=== PATIENT | male | born 1960 | race Caucasian/White ===

== ENCOUNTER 2020-09-19 12:05 | Day surgery (SDC) | payer MEDICAID ==
[2020-09-14 11:59] LABS: BASOPHILS % (AUTO) 0.6 % (0-1); EOSINOPHILS # (AUTO) 0.1 X10'3 (0-0.9); EOSINOPHILS % (AUTO) 1.6 % (0-6); HEMATOCRIT 46.5 % (42.0-52.0); HEMOGLOBIN 15.8 g/dl (14.0-17.9); LYMPHOCYTES % (AUTO) 18.1 % (21-51); MEAN CORPUSCULAR HEMOGLOBIN 29.6 PG (27.0-31.0); MEAN CORPUSCULAR HGB CONC 33.9 g/dL (33.0-36.5); MEAN CORPUSCULAR VOLUME 87.3 FL (78-98); MEAN PLATELET VOLUME 8.2 FL (7.4-10.4); MONOCYTES # (AUTO) 0.4 X10'3 (0-0.9); MONOCYTES % (AUTO) 7.9 % (2-12); NEUTROPHILS # (AUTO) 3.9 X10'3 (1.8-7.7); NEUTROPHILS % (AUTO) 71.8 % (42-75); PLATELET COUNT 160 X10'3 (140-440); RED BLOOD COUNT 5.32 X10'6 (4.70-6.10); RED CELL DISTRIBUTION WIDTH 13.7 % (11.5-14.5); WHITE BLOOD COUNT 5.5 X10'3 (4.5-11.0)
[2020-09-14 12:07] LABS: ALBUMIN 4.1 G/DL (3.4-5.0); ANION GAP 8 (8-16); BLOOD UREA NITROGEN 19 MG/DL (7-18); BUN/CREATININE RATIO 19.8 (5.4-32.0); CALCIUM 9.4 MG/DL (8.5-10.1); CHLORIDE 104 MMOL/L (99-107); CREATININE 0.96 MG/DL (0.60-1.10); GLUCOSE 107 MG/DL (70-104); POTASSIUM 4.7 MMOL/L (3.5-5.1); SODIUM 140 MMOL/L (135-145); TOTAL CARBON DIOXIDE 27.8 MMOL/L (24-32); eGFR 80 ML/MIN
[2020-09-14 12:26] LABS: PARTIAL THROMBOPLASTIN TIME 27 SECONDS (22-32)
[2020-09-19] VITALS (8 sets, daily range): BP systolic 111–150; BP diastolic 67–94
[~2020-09-19] VITALS: Ht 167.6 cm; Wt 88.0 kg
[2020-09-19] MEDS ORDERED: normal saline 1,000 ML IV SCH (12:30)
[2020-09-19] MEDS ORDERED: diphenhydrAMINE 25mg capsule PO PRN (12:30)
[2020-09-19] MEDS ORDERED: LIDOcaine/PRILOcaine 5gm cream TP ONE (12:30)
[2020-09-19] MEDS ORDERED: LORazepam 0.5 MG tablet PO PRN (12:30)
[2020-09-19] MEDS ORDERED: TIMO5DRO4 (12:55)
[2020-09-19] MEDS ORDERED: ALBU8.5H8 (12:55)
[2020-09-19] MEDS ORDERED: BUDE10.22 INH (12:55)
[2020-09-19] MEDS ORDERED: GABA100C PO (12:55)
[2020-09-19] MEDS ORDERED: LATA2.5D14 (12:55)
[2020-09-19] MEDS ORDERED: PANT40TA54 PO (12:55)
[2020-09-19] MEDS ORDERED: ASPI-107 PO (12:55)
[2020-09-19] MEDS ORDERED: BUDE10.26 PO (12:55)
[2020-09-19] MEDS ORDERED: TIOT4MIS2 INH (12:55)
[2020-09-19] MEDS ORDERED: APRE30TA2 PO (12:55)
[2020-09-19] MEDS ORDERED: fentaNYL/PF 50MCG/1 ML 2ML syringe ONE (13:22)
[2020-09-19] MEDS ORDERED: LIDOcaine 1% (10mg/ml)w/preservative injection 20ml MDV ONE (13:22)
[2020-09-19] MEDS ORDERED: midazolam 1 mg/ML 2ml injection ONE (13:22)
[2020-09-19] MEDS ORDERED: heparin 1,000 UNITS/NS 500ml 500 ML ONE (13:22)
[2020-09-19] MEDS ORDERED: iohexol 350MG/ML 100ml bottle IV ONE (13:22)
[2020-09-19] MEDS ORDERED: HYDROcodone/acetaminophen 5mg/325mg tablet PO PRN (15:20)
[2020-09-19] MEDS ORDERED: ondansetron/PF 4mg/2ml inj IV PRN (15:20)
[2020-09-19] MEDS ORDERED: proCHLORperazine 10 MG/2 ml inj IV PRN (15:20)
[2020-09-19] MEDS ORDERED: HYDROcodone/acetaminophen 10/325mg tab PO PRN (15:20)
== END 2020-09-19 18:00 | disposition home or self-care (01) ==
LOC: SSTAY O 12:05
PROVIDERS: ATTEND Internal Medicine Interventional Cardiology
DX: I35.0 Nonrheumatic aortic (valve) stenosis (principal); I25.10 Atherosclerotic heart disease of native coronary artery without angina pectoris; J44.9 Chronic obstructive pulmonary disease, unspecified; K74.60 Unspecified cirrhosis of liver; E78.5 Hyperlipidemia, unspecified; Z79.01 Long term (current) use of anticoagulants; Z86.19 Personal history of other infectious and parasitic diseases; Z79.82 Long term (current) use of aspirin; Z79.899 Other long term (current) drug therapy
CPT/HCPCS: 36415; 80048; 85025; 85610; 85730; 93005; 93460; 99152; C1769; J1644; J2001; J2250; J3010; J7030; Q0163; Q9967; 99153; A4620; A6258; C1751

== ENCOUNTER 2020-10-29 06:59 | Emergency (ER) | payer MEDICAID ==
[~2020-10-29] VITALS: Ht 167.6 cm; Wt 86.4 kg
[~2020-10-29 06:59] MED LIST: ALBU8.5H8 INH; APRE30TA2 PO; ASPI-107 PO; BUDE10.22 INH; BUDE10.26 PO; GABA100C PO; LATA2.5D14 EACHEYE; PANT40TA54 PO; TIMO5DRO4 EACHEYE; TIOT4MIS2 INH
[2020-10-29 07:03] VITALS: BP 147/87
[2020-10-29] MEDS ORDERED: HYDR-3965 PO (07:44)
[2020-10-29] MEDS ORDERED: HYDROcodone/acetaminophen 5mg/325mg tablet PO ONE (07:45)
[2020-11-02] MEDS ORDERED: BACL20TA PO (11:09)
== END 2020-10-29 09:29 | disposition home or self-care (01) ==
LOC: ER 07:01
DX: S82.831A Other fracture of upper and lower end of right fibula, initial encounter for closed fracture (principal); J44.9 Chronic obstructive pulmonary disease, unspecified; Z87.891 Personal history of nicotine dependence; Z72.89 Other problems related to lifestyle; Z79.82 Long term (current) use of aspirin; Z79.899 Other long term (current) drug therapy; W19.XXXA Unspecified fall, initial encounter; Z91.81 History of falling; Y93.89 Activity, other specified; Y92.002 Bathroom of unspecified non-institutional (private) residence as the place of occurrence of the external cause; Y99.8 Other external cause status
CPT/HCPCS: 73610; 99284

== ENCOUNTER 2020-11-06 09:21 | Day surgery (SDC) | payer MEDICAID ==
[2020-11-02 12:31] LABS: BASOPHILS % (AUTO) 0.6 % (0-1); EOSINOPHILS # (AUTO) 0.2 X10'3 (0-0.9); EOSINOPHILS % (AUTO) 3.8 % (0-6); LYMPHOCYTES # (AUTO) 0.9 X10'3 (1.1-4.8); LYMPHOCYTES % (AUTO) 18.3 % (21-51); MEAN CORPUSCULAR HEMOGLOBIN 29.5 PG (27.0-31.0); MEAN CORPUSCULAR HGB CONC 33.6 g/dL (33.0-36.5); MEAN CORPUSCULAR VOLUME 87.9 FL (78-98); MONOCYTES # (AUTO) 0.5 X10'3 (0-0.9); MONOCYTES % (AUTO) 10.9 % (2-12); NEUTROPHILS # (AUTO) 3.3 X10'3 (1.8-7.7); NEUTROPHILS % (AUTO) 66.4 % (42-75); PRE OP HEMATOCRIT 39.8 % (42.0-52.0); PRE OP HEMOGLOBIN 13.4 g/dL (14.0-17.9); PRE OP PLATELET COUNT 148 X10'3 (140-440); RED BLOOD COUNT 4.53 X10'6 (4.70-6.10); RED CELL DISTRIBUTION WIDTH 13.4 % (11.5-14.5)
[2020-11-02 12:40] LABS: PRE OP INR 1.1 INR; PRE OP PROTIME 11.4 SECONDS (9.0-12.0)
[2020-11-02 12:41] LABS: ALBUMIN 3.6 G/DL (3.4-5.0); ALBUMIN/GLOBULIN RATIO 0.9 (1.1-1.5); ALKALINE PHOSPHATASE 43 IU/L (46-116); BLOOD UREA NITROGEN 19 MG/DL (7-18); BUN/CREATININE RATIO 21.8 (5.4-32.0); CALCIUM 9.5 MG/DL (8.5-10.1); CHLORIDE 103 MMOL/L (99-107); CREATININE 0.87 MG/DL (0.60-1.10); PRE OP ALT 28 U/L (30-65); PRE OP ANION GAP 7 (8-16); PRE OP AST 22 U/L (10-37); PRE OP BILIRUB, TOTAL 0.5 MG/DL (0.0-1.0); PRE OP GLUCOSE 105 MG/DL (70-104); PRE OP POTASSIUM 4.5 MMOL/L (3.4-5.1); PRE OP SODIUM 138 MMOL/L (135-145); TOTAL CARBON DIOXIDE 28.5 MMOL/L (24-32); TOTAL PROTEIN 7.7 G/DL (6.4-8.2); eGFR 90 ML/MIN
[2020-11-06] VITALS (9 sets, daily range): BP systolic 132–155; BP diastolic 60–74
[~2020-11-06] VITALS: Ht 167.6 cm; Wt 86.2 kg
[~2020-11-06 09:21] MED LIST changes: +BACL20TA PO; -BUDE10.26 PO; +albuterol 2.5 MG/3 ML nebule NEB ONE; +cefazolin/dext.iso 2gm/100ml 100 ML IV ONE; +famotidine 20mg tablet PO ONE; +ringers solution, lacted 1,000 ML IV SCH; +vancomycin 1,500 MG in NS 300ml IV soln IV ONE
[2020-11-06] MEDS ORDERED: fentaNYL /PF 50mcg/ml 5ml ampule ONE (12:06)
[2020-11-06] MEDS ORDERED: MIDAZolam 1 MG/ML 5ML VIAL ONE (12:06)
[2020-11-06] MEDS ORDERED: etomidate 2mg/ml inj. ONE (12:06)
[2020-11-06] MEDS ORDERED: ROPIVAcaine 0.5% (5mg/ml) 30ml vial ONE (12:07)
[2020-11-06] MEDS ORDERED: BUPIVACAINE liposomal/PF 13.3 MG/ML vial IM ONE (12:12)
[2020-11-06] MEDS ORDERED: BUPIVAcaine/PF 2.5mg/ml (0.25%) 10ml vial ONE (12:12)
[2020-11-06] MEDS ORDERED: morphine 2 MG/ML inj. syringe IV PRN (12:15)
[2020-11-06] MEDS ORDERED: ROPIVAcaine 0.2%/PF PUMP/bolus 545 ML POPLITEAL SCH (12:15)
[2020-11-06] MEDS ORDERED: hydrALAZINE 20mg/ml inj. IV PRN (12:15)
[2020-11-06] MEDS ORDERED: ondansetron/PF 4mg/2ml inj IV PRN (12:15)
[2020-11-06] MEDS ORDERED: fentaNYL/PF 50MCG/1 ML 2ML syringe IV PRN ×2 (12:15)
[2020-11-06] MEDS ORDERED: morphine 4 MG/ML inj SYRINge IV PRN ×2 (12:15→12:30)
[2020-11-06] MEDS ORDERED: labetalol 20mg/4ml (5mg/ml) syringe IV PRN (12:15)
[2020-11-06] MEDS ORDERED: ROPIVAcaine 0.2% (10 MG/5 ML) BOLUS INJECTION POPLITEAL PRN (12:15)
[2020-11-06] MEDS ORDERED: ringers solution, lacted 1,000 ML IV SCH (12:15)
[2020-11-06] MEDS ORDERED: sevoflurane 250ml liquid IH ONE (12:31)
[2020-11-06] MEDS ORDERED: dexamethasone sod phosphate 4mg/ml inj. ONE (13:31)
[2020-11-06] MEDS ORDERED: ondansetron/PF 4mg/2ml inj ONE (13:32)
--- NOTE | 2020-11-06 13:55 | NUR ---
ADMITTED TO PACU FROM OR ACCOMPANIED BY ANESTHESIA. INTIAL PHYSICAL ASSESSMENT DONE AND RECORDED. REPORT RECEIVED FROM ANESTHESIA.
--- NOTE | 2020-11-06 15:00 | NUR ---
DISCHARGE CRITERIA MET, DISCHARGE INSTRUCTIONS GIVEN, DEMONSTRATES VERBAL UNDERSTANDING. DISCHARGED HOME IN GOOD CONDITION.
== END 2020-11-06 15:00 | disposition home or self-care (01) ==
LOC: PAS 09:21
PROVIDERS: ATTEND Orthopaedic Surgery
DX: S82.61XA Displaced fracture of lateral malleolus of right fibula, initial encounter for closed fracture (principal); S93.431A Sprain of tibiofibular ligament of right ankle, initial encounter; G89.18 Other acute postprocedural pain; J44.9 Chronic obstructive pulmonary disease, unspecified; K74.60 Unspecified cirrhosis of liver; H40.9 Unspecified glaucoma; Z86.19 Personal history of other infectious and parasitic diseases; Z86.16 Personal history of COVID-19; Z87.891 Personal history of nicotine dependence; Z79.82 Long term (current) use of aspirin; Z79.899 Other long term (current) drug therapy; Z20.822 Contact with and (suspected) exposure to COVID-19; W19.XXXA Unspecified fall, initial encounter; Y93.89 Activity, other specified; Y92.89 Other specified places as the place of occurrence of the external cause; Y99.8 Other external cause status
CPT/HCPCS: 27792; 36415; 64446; 64448; 71046; 73600; 76000; 76937; 80053; 85025; 85610; 85730; A6222; C1713; C9290; J1100; J2250; J2270; J2405; J2795; J3010; J3370; J3490; J7040; U0003; A4618; A6449; A7000; J7120

== ENCOUNTER 2021-09-02 13:06 | Emergency (ER) | payer MEDICAID ==
[~2021-09-02] VITALS: Ht 172.7 cm; Wt 94.4 kg
[~2021-09-02 13:06] MED LIST changes: +ALBU8.5H17 INH; -ALBU8.5H8 INH; -albuterol 2.5 MG/3 ML nebule NEB ONE; -cefazolin/dext.iso 2gm/100ml 100 ML IV ONE; -famotidine 20mg tablet PO ONE; -ringers solution, lacted 1,000 ML IV SCH; -vancomycin 1,500 MG in NS 300ml IV soln IV ONE
[2021-09-02 13:28] VITALS: BP 145/100
[2021-09-02 15:45] LABS: CLARITY,URINE CLEAR (Clear); COLOR,URINE YELLOW (Yellow); GLUCOSE, URINE NEGATIVE (Neg); KETONES,URINE NEGATIVE (Neg); LEUKOCYTE ESTERASE ,URINE NEGATIVE (Neg); NITRITES, URINE NEGATIVE (Neg); OCCULT BLOOD,URINE NEGATIVE (Neg); PH,URINE 5.5 (4.8-8.0); PROTEIN,URINE NEGATIVE (Neg); UROBILINOGEN,URINE 0.2 E.U/dL (0.2-1.0)
[2021-09-02 15:46] LABS: UA COLLECTION TYPE CLN CATCH MIDSTREAM
[2021-09-02 15:53] LABS: BASOPHILS % (AUTO) 0.7 % (0-1); EOSINOPHILS # (AUTO) 0.1 X10'3 (0-0.9); EOSINOPHILS % (AUTO) 1.8 % (0-6); HEMOGLOBIN 16.6 g/dl (14.0-17.9); LYMPHOCYTES # (AUTO) 1.3 X10'3 (1.1-4.8); LYMPHOCYTES % (AUTO) 20.3 % (21-51); MEAN CORPUSCULAR HEMOGLOBIN 29.5 PG (27.0-31.0); MEAN CORPUSCULAR HGB CONC 34.5 g/dL (33.0-36.5); MEAN CORPUSCULAR VOLUME 85.5 FL (78-98); MEAN PLATELET VOLUME 8.5 FL (7.4-10.4); MONOCYTES # (AUTO) 0.6 X10'3 (0-0.9); NEUTROPHILS # (AUTO) 4.2 X10'3 (1.8-7.7); NEUTROPHILS % (AUTO) 68.2 % (42-75); PLATELET COUNT 182 X10'3 (140-440); RED BLOOD COUNT 5.61 X10'6 (4.70-6.10); RED CELL DISTRIBUTION WIDTH 13.4 % (11.5-14.5); WHITE BLOOD COUNT 6.2 X10'3 (4.5-11.0)
[2021-09-02 16:00] LABS: ALANINE AMINOTRANSFERASE 48 U/L (12-78); ALBUMIN 4.1 G/DL (3.4-5.0); ALBUMIN/GLOBULIN RATIO 0.9 (1.1-1.5); ALKALINE PHOSPHATASE 55 IU/L (46-116); ANION GAP 5 (8-16); ASPARTATE AMINO TRANSFERASE 24 U/L (10-37); BILIRUBIN,TOTAL 0.5 MG/DL (0.1-1.0); BLOOD UREA NITROGEN 13 MG/DL (7-18); CALCIUM 9.4 MG/DL (8.5-10.1); CHLORIDE 106 MMOL/L (99-107); CREATININE 0.93 MG/DL (0.60-1.10); GLUCOSE 103 MG/DL (70-104); POTASSIUM 4.3 MMOL/L (3.5-5.1); SODIUM 139 MMOL/L (135-145); TOTAL CARBON DIOXIDE 27.6 MMOL/L (24-32); TOTAL PROTEIN 8.7 G/DL (6.4-8.2); eGFR 83 ML/MIN
== END 2021-09-02 16:50 | disposition home or self-care (01) ==
LOC: ER 13:07
DX: S30.0XXA Contusion of lower back and pelvis, initial encounter (principal); K76.9 Liver disease, unspecified; Z86.19 Personal history of other infectious and parasitic diseases; J44.9 Chronic obstructive pulmonary disease, unspecified; I35.0 Nonrheumatic aortic (valve) stenosis; G89.29 Other chronic pain; Z72.89 Other problems related to lifestyle; Z79.82 Long term (current) use of aspirin; Z79.899 Other long term (current) drug therapy; X58.XXXA Exposure to other specified factors, initial encounter; Y93.89 Activity, other specified; Y92.89 Other specified places as the place of occurrence of the external cause; Y99.8 Other external cause status
CPT/HCPCS: 36415; 80053; 81003; 83605; 84145; 85025; 85610; 99283

== ENCOUNTER 2021-10-27 14:20 | Emergency (ER) | payer MEDICAID ==
[~2021-10-27] VITALS: Ht 172.7 cm; Wt 93.8 kg
[2021-10-27 15:22] LABS: CLARITY,URINE CLEAR (Clear); COLOR,URINE YELLOW (Yellow); GLUCOSE, URINE NEGATIVE (Neg); KETONES,URINE NEGATIVE (Neg); LEUKOCYTE ESTERASE ,URINE NEGATIVE (Neg); NITRITES, URINE NEGATIVE (Neg); OCCULT BLOOD,URINE NEGATIVE (Neg); PH,URINE 5.5 (4.8-8.0); PROTEIN,URINE NEGATIVE (Neg); UROBILINOGEN,URINE 0.2 E.U/dL (0.2-1.0)
[2021-10-27 15:24] LABS: UA COLLECTION TYPE NON-SPECIFIED
[2021-10-27 15:32] VITALS: BP 118/89
== END 2021-10-27 16:24 | disposition home or self-care (01) ==
LOC: ER 14:21
DX: K46.9 Unspecified abdominal hernia without obstruction or gangrene (principal); J44.9 Chronic obstructive pulmonary disease, unspecified; G89.29 Other chronic pain; Z86.16 Personal history of COVID-19; Z72.89 Other problems related to lifestyle; Z79.82 Long term (current) use of aspirin; Z79.899 Other long term (current) drug therapy
CPT/HCPCS: 81003; 99283

== ENCOUNTER 2022-04-05 10:26 | Outpatient (CLI) | payer MEDICAID ==
[~2022-04-05] VITALS: Ht 173.2 cm; Wt 90.7 kg
[2022-04-05 11:00] LABS: BASOPHILS % (AUTO) 0.6 % (0-1); EOSINOPHILS # (AUTO) 0.1 X10'3 (0-0.9); EOSINOPHILS % (AUTO) 2.9 % (0-6); HEMATOCRIT 42.4 % (42.0-52.0); HEMOGLOBIN 14.5 g/dl (14.0-17.9); LYMPHOCYTES # (AUTO) 0.9 X10'3 (1.1-4.8); LYMPHOCYTES % (AUTO) 19.3 % (21-51); MEAN CORPUSCULAR HEMOGLOBIN 29.4 PG (27.0-31.0); MEAN CORPUSCULAR HGB CONC 34.1 g/dL (33.0-36.5); MEAN CORPUSCULAR VOLUME 86.2 FL (78-98); MEAN PLATELET VOLUME 8.5 FL (7.4-10.4); MONOCYTES # (AUTO) 0.5 X10'3 (0-0.9); MONOCYTES % (AUTO) 10.8 % (2-12); NEUTROPHILS # (AUTO) 3.1 X10'3 (1.8-7.7); NEUTROPHILS % (AUTO) 66.4 % (42-75); PLATELET COUNT 138 X10'3 (140-440); RED BLOOD COUNT 4.92 X10'6 (4.70-6.10); RED CELL DISTRIBUTION WIDTH 13.3 % (11.5-14.5); WHITE BLOOD COUNT 4.7 X10'3 (4.5-11.0)
[2022-04-05 11:11] LABS: APTT 29 SECONDS (22-32)
[2022-04-05 11:13] LABS: ALANINE AMINOTRANSFERASE 29 U/L (12-78); ALBUMIN 3.9 G/DL (3.4-5.0); ALBUMIN/GLOBULIN RATIO 1.1 (1.1-1.5); ALKALINE PHOSPHATASE 48 IU/L (46-116); ASPARTATE AMINO TRANSFERASE 13 U/L (10-37); BILIRUBIN,TOTAL 0.3 MG/DL (0.1-1.0); CALCIUM 8.7 MG/DL (8.5-10.1); TOTAL CARBON DIOXIDE 26.3 MMOL/L (24-32); TOTAL PROTEIN 7.5 G/DL (6.4-8.2)
[2022-04-05 11:18] LABS: ANION GAP 9 (8-16); BLOOD UREA NITROGEN 13 MG/DL (7-18); BUN/CREATININE RATIO 15.5 (5.4-32.0); CHLORIDE 105 MMOL/L (99-107); CREATININE 0.84 MG/DL (0.60-1.10); GLUCOSE 92 MG/DL (70-104); POTASSIUM 4.1 MMOL/L (3.5-5.1); SODIUM 140 MMOL/L (135-145); eGFR > 90 ML/MIN
[2022-04-05] MEDS ORDERED: IODIXANOL 320 MG/ML INFUS..BTL 100ML IV ONE ×2 (12:28→12:29)
[2022-04-05 14:09] LABS: ABG BASE EXCESS -0.2 mmol/L (-2.0-2.0); ABG HCO3 24.1 mmol/L (22.0-26.0); ABG OXYGEN SATURATION 97.2 % (94-97); ABG PCO2 (T) 38.5 mmHg (35.0-48.0); ALLEN'S TEST POSITIVE; FCOHb 0.7 % (0.0-3.9); FO2Hb 96.5 % (94-97); TOTAL HEMOGLOBIN 15.2 G/dl (14.0-18.0)
[2022-04-05] MEDS ORDERED: albuterol 2.5 MG/3 ML nebule NEB ONE (14:35)
== END 2022-04-05 23:59 | disposition home or self-care (01) ==
LOC: VAS 10:26 → RAD 23:59
PROVIDERS: ATTEND Internal Medicine Cardiovascular Disease
DX: Z01.818 Encounter for other preprocedural examination (principal); J43.9 Emphysema, unspecified; I70.0 Atherosclerosis of aorta; I70.8 Atherosclerosis of other arteries; R91.1 Solitary pulmonary nodule; J98.11 Atelectasis; K76.0 Fatty (change of) liver, not elsewhere classified; R16.0 Hepatomegaly, not elsewhere classified; R94.2 Abnormal results of pulmonary function studies; K42.9 Umbilical hernia without obstruction or gangrene; K40.20 Bilateral inguinal hernia, without obstruction or gangrene, not specified as recurrent; N40.0 Benign prostatic hyperplasia without lower urinary tract symptoms; K44.9 Diaphragmatic hernia without obstruction or gangrene; M41.85 Other forms of scoliosis, thoracolumbar region; M47.815 Spondylosis without myelopathy or radiculopathy, thoracolumbar region; I35.0 Nonrheumatic aortic (valve) stenosis; I65.29 Occlusion and stenosis of unspecified carotid artery; Z79.82 Long term (current) use of aspirin; Z79.899 Other long term (current) drug therapy; Z87.891 Personal history of nicotine dependence
CPT/HCPCS: 36415; 36600; 71046; 71275; 74174; 80053; 82803; 85018; 85025; 85610; 85730; 87811; 93880; 94060; 94727; 94729; 94760; Q9967

== ENCOUNTER 2022-05-30 06:37 | Inpatient (IN) | payer MEDICAID ==
[2022-05-24 14:51] LABS: CLARITY,URINE CLEAR (Clear); COLOR,URINE YELLOW (Yellow); GLUCOSE, URINE NEGATIVE (Neg); KETONES,URINE NEGATIVE (Neg); LEUKOCYTE ESTERASE ,URINE NEGATIVE (Neg); NITRITES, URINE NEGATIVE (Neg); OCCULT BLOOD,URINE NEGATIVE (Neg); PROTEIN,URINE NEGATIVE (Neg); UROBILINOGEN,URINE 0.2 E.U/dL (0.2-1.0)
[2022-05-24 14:57] LABS: UA COLLECTION TYPE CLN CATCH MIDSTREAM
[2022-05-24 14:58] LABS: BASOPHILS % (AUTO) 0.6 % (0-1); EOSINOPHILS # (AUTO) 0.2 X10'3 (0-0.9); EOSINOPHILS % (AUTO) 3.6 % (0-6); LYMPHOCYTES # (AUTO) 1.1 X10'3 (1.1-4.8); LYMPHOCYTES % (AUTO) 18.1 % (21-51); MEAN CORPUSCULAR HEMOGLOBIN 29.2 PG (27.0-31.0); MEAN CORPUSCULAR HGB CONC 34.6 g/dL (33.0-36.5); MEAN CORPUSCULAR VOLUME 84.3 FL (78-98); MEAN PLATELET VOLUME 7.8 FL (7.4-10.4); MONOCYTES # (AUTO) 0.6 X10'3 (0-0.9); MONOCYTES % (AUTO) 9.4 % (2-12); NEUTROPHILS # (AUTO) 4.2 X10'3 (1.8-7.7); NEUTROPHILS % (AUTO) 68.3 % (42-75); PRE OP HEMATOCRIT 44.4 % (42.0-52.0); PRE OP HEMOGLOBIN 15.4 g/dL (14.0-17.9); PRE OP PLATELET COUNT 177 X10'3 (140-440); RED BLOOD COUNT 5.27 X10'6 (4.70-6.10); RED CELL DISTRIBUTION WIDTH 13.2 % (11.5-14.5)
[2022-05-24 15:03] LABS: PRE OP INR 1.1 INR; PRE OP PROTIME 11.5 SECONDS (9.0-12.0)
[2022-05-24 15:04] LABS: ALBUMIN/GLOBULIN RATIO 0.9 (1.1-1.5); ALKALINE PHOSPHATASE 56 IU/L (46-116); BLOOD UREA NITROGEN 17 MG/DL (7-18); BUN/CREATININE RATIO 18.5 (5.4-32.0); CALCIUM 9.3 MG/DL (8.5-10.1); CHLORIDE 104 MMOL/L (99-107); CREATININE 0.92 MG/DL (0.60-1.10); PRE OP ALT 29 U/L (30-65); PRE OP ANION GAP 12 (8-16); PRE OP AST 23 U/L (10-37); PRE OP BILIRUB, TOTAL 0.5 MG/DL (0.0-1.0); PRE OP GLUCOSE 97 MG/DL (70-104); PRE OP POTASSIUM 4.5 MMOL/L (3.4-5.1); PRE OP SODIUM 140 MMOL/L (135-145); TOTAL CARBON DIOXIDE 24.3 MMOL/L (24-32); TOTAL PROTEIN 8.4 G/DL (6.4-8.2); eGFR 84 ML/MIN
[2022-05-30] VITALS (24 sets, daily range): BP systolic 112–142; BP diastolic 65–81
[~2022-05-30] VITALS: Ht 172.7 cm; Wt 88.8 kg
[~2022-05-30 06:37] MED LIST changes: +BUDE10.2 INH; -BUDE10.22 INH; +FLO0.4C; -GABA100C PO; +GABA300C PO; -TIMO5DRO4 EACHEYE; +aspirin 325mg tablet, delayed-release (Ecotrin) PO ONE; +ceFAZolin inj. 2,000 MG in dextrose 5%-water 100 ML IV ONE; +famotidine 20mg tablet PO ONE; +nitroPRUSSIDE (NIPRIDE) (200MCG/ML) 100ML Drip IV SCH; +ondansetron/PF 4mg/2ml inj IV PRN; +phenylephrine inj 50 MG in normal saline 250ml IV solN IV SCH; +protamine sulfate 10mg/ml inj. ONE; +ringers solution, lacted 1,000 ML IV SCH; +vancomycin 1,500 MG in NS 300ml IV soln IV ONE
--- NOTE | 2022-05-30 07:00 | NUR ---
PT PREPPED FOR SURGERY. IV STARTED WITHOUT DIFFICULTY. PT STATES HE FEELS VBERY SELFCONSCIOUS WITHOUT HIS DENTURES. ANESTHESIA AT BEDSIDE AND ADVISED PT THAT HE COULD PUT HIS DENTURES IN. PT IMMEDIATELY WALKED TO SINK WHERE HE INSERTED HIS DENTURES. PT WAS RECENTLY TREATED FOR HEP C. GFR IS 84 NIPRIDE AND VIKAS DRIPS PREPARED AND PLACED IN INFUSION PUMPS
[2022-05-30] MEDS ORDERED: REMIFENTANIL (Ultiva) 1 MG VIAL IV ONE (07:25)
[2022-05-30] MEDS ORDERED: iohexol 350MG/ML 100ml bottle IV ONE (09:13)
[2022-05-30] MEDS ORDERED: iohexol 350 MG/ML 50ML vial IV ONE (09:13)
[2022-05-30] MEDS ORDERED: heparin 1,000 UNITS/NS 500ml 1,500 ML ONE (09:14)
[2022-05-30] MEDS ORDERED: LIDOcaine 1% 30ml preserv. free vial ONE (09:16)
[2022-05-30] MEDS ORDERED: midazolam 1 mg/ML 2ml injection ONE (09:22)
[2022-05-30] MEDS ORDERED: propofol inj 20 ML IV ONE (09:54)
[2022-05-30] MEDS ORDERED: heparin 1,000unit/ml 10ml vial 10 ML ONE (09:54)
[2022-05-30] MEDS ORDERED: ALBUTEROL INHALER 1 PUFF/90 MCG INHALation IH PRN (10:00)
[2022-05-30] MEDS ORDERED: baclofen 10mg tablet PO PRN (10:00)
[2022-05-30] MEDS ORDERED: albuterol 2.5 MG/3 ML nebule NEB PRN (10:06)
[2022-05-30] MEDS ORDERED: proCHLORperazine 10 MG/2 ml inj IV PRN ×2 (10:15→10:30)
[2022-05-30] MEDS ORDERED: ondansetron/PF 4mg/2ml inj IV PRN ×2 (10:15→10:30)
[2022-05-30] MEDS ORDERED: ringers solution, lacted 1,000 ML IV SCH (10:15)
[2022-05-30] MEDS ORDERED: morphine 2 MG/ML inj. syringe IV PRN (10:15)
[2022-05-30] MEDS ORDERED: meperidine/PF 25mg/ml syringe IV PRN ×3 (10:15)
[2022-05-30] MEDS ORDERED: morphine 4 MG/ML inj SYRINge IV PRN (10:15)
[2022-05-30] MEDS ORDERED: labetalol 20mg/4ml (5mg/ml) syringe IV PRN (10:30)
[2022-05-30] MEDS ORDERED: potassium Cl 40MEQ/270ML bag 250 ML IV PRN (10:30)
[2022-05-30] MEDS ORDERED: magnesium 2GM in 50ml NS 50 ML IV PRN (10:30)
[2022-05-30] MEDS ORDERED: potassium Cl 20 mEq SR tablet PO PRN (10:30)
[2022-05-30] MEDS ORDERED: hydrALAZINE 20mg/ml inj. IV PRN (10:30)
[2022-05-30] MEDS ORDERED: potassium Cl 40MEQ/1/2NS 520ml 520 ML IV PRN (10:30)
[2022-05-30] MEDS ORDERED: docusate sod 100mg capsule PO PRN (10:30)
[2022-05-30] MEDS ORDERED: pantoprazole 40mg Tablet.DR PO PRN (10:30)
[2022-05-30] MEDS ORDERED: acetaminophen 325mg tablet PO PRN ×2 (10:30→17:25)
[2022-05-30] MEDS ORDERED: potassium Cl 20mEq/100mL bag 100 ML IV PRN (10:30)
[2022-05-30] MEDS ORDERED: ALPRAZolam 0.25mg tablet PO PRN (10:30)
[2022-05-30] MEDS ORDERED: potassium CL 10mEq/100ml bag 100 ML IV PRN (10:30)
[2022-05-30] MEDS ORDERED: magnesium 4gm in 100ml NS 100 ML IV PRN (10:30)
[2022-05-30] MEDS ORDERED: diphenhydrAMINE 25mg capsule PO PRN (10:30)
--- NOTE | 2022-05-30 10:35 | NUR ---
Received from OR via HOSPITAL BED , accompanied by Anesthesiologist and report given by Anesthesiolgist. PT ARRIVES AAOX4, ON SIMPLE MASK O2, NAD, BREATHS NORMAL, APPEARS CALM AND FOLLOWS COMMANDS. BILATERAL GROIN DRESSING DRY, CLEAN AND INTACT. PT VSS. Addendum: 05/30/22 at 1044 by Coy Colon RN Amended: Links added.
--- NOTE | 2022-05-30 11:24 | NUR ---
PT BILATERAL GROIN DRESSING CLEAN, DRY AND INTACT. NO SIGNS OF SWELLING OR HEMATOMA. Addendum: 05/30/22 at 1135 by Coy Colon RN Amended: Links added.
--- NOTE | 2022-05-30 11:36 | NUR ---
PT HAS URGE TO VOID WITHOUT ABILITY TO VOID. MULTIPLE ATTEMPTS TO VOID BUT UNABLE. MD NOTIFIED, ONE TIME IN&OUT CATH ORDER TO FOLLOW. BLADDER SCAN SHOWS APPROX 400 ML. Addendum: 05/30/22 at 1137 by Coy Colon RN Amended: Links added.
--- NOTE | 2022-05-30 11:45 | NUR ---
IN AND OUT STRAIGHT CATH PERFORMED PER MD ORDER WITHOUT INCIDENT. APPROX 400ML URINE RETURN, YELLOW IN COLOR. PT REPORTS FEELING MORE COMFORTABLE NOW. Addendum: 05/30/22 at 1203 by Coy Colon RN Amended: Links added.
--- NOTE | 2022-05-30 12:15 | NUR ---
Report called to receiving nurse SALAS BAILEY. Transferred via HOSPITAL BED. Belongings BAG LEFT WITH PT IN SHORT STAY ROOM . PT DELIVERED TO SHORT STAY WITHOUT INCIDENT, RN TO RN HANDOFF IN PTS ROOM. CONNECTED TO MONITOR, BED IN LOW POSITION. DRESSING TO BILATERAL GROIN ASSESSED, CLEAN, DRY AND INTACT. Special Issues communicated to receiving nurse. Addendum: 05/30/22 at 1231 by Coy Colon RN Amended: Links added.
[2022-05-30] MEDS: normal saline 1000ml 1,000 ML IV SCH ×2 (14:45→20:30)
[2022-05-30] MEDS: ceFAZolin 1GM/D5W- ADD-VANTAGE 50 ML IV SCH (16:00)
--- NOTE | 2022-05-30 16:09 | NUR ---
Received report from Johanna BAILEY. Patient will be transferred up to the floor via bed accompanied by nurse.
[2022-05-30] MEDS: sod chloride 0.9% 10ml flush syringe IV SCH (16:56)
--- NOTE | 2022-05-30 17:17 | NUR ---
dye lab technician RN coordinator came to floor and reported to nursing that the patient can sit up and resume activities as tolerated.
--- NOTE | 2022-05-30 18:13 | NUR ---
Problems reprioritized. Patient report given to RENEA RN, questions answered & plan of care reviewed with .
--- NOTE | 2022-05-30 18:30 | NUR ---
Received report from outgoing nurse. Pt is in bed calmly. not in distress at the moment. Bed in low position. Call lawrence within reach.
[2022-05-30] MEDS: APREMILAST 30 MG PO SCH (20:00)
[2022-05-30] MEDS: ipratropium 0.5 MG/2.5ML nebule NEB SCH (20:12)
[2022-05-30] MEDS: albuterol 2.5 MG/3 ML nebule NEB SCH ×2 (20:12→21:00)
[2022-05-30] MEDS: budesonide 0.5mg/2ml UD nebule IH SCH (20:12)
[2022-05-30] MEDS ORDERED: gabapentin 300mg capsule PO SCH (21:00)
[2022-05-30] MEDS ORDERED: pantoprazole 40mg Tablet.DR PO SCH (21:00)
[2022-05-30] MEDS ORDERED: latanoprost 0.005% 2.5ml ophthalmic drops EACHEYE SCH (21:00)
[2022-05-30] MEDS: vancomycin/NS 1 GM ADD-VANTAGE 250 ML IV SCH (21:25)
[2022-05-31] MEDS: ceFAZolin 1GM/D5W- ADD-VANTAGE 50 ML IV SCH ×2 (00:50→08:49)
[2022-05-31] MEDS: sod chloride 0.9% 10ml flush syringe IV SCH ×2 (00:51→08:52)
[2022-05-31 02:42] VITALS: BP 151/72
[2022-05-31] MEDS: ipratropium 0.5 MG/2.5ML nebule NEB SCH ×2 (03:00→07:58)
[2022-05-31] MEDS: albuterol 2.5 MG/3 ML nebule NEB SCH ×2 (03:00→07:58)
[2022-05-31 06:00] VITALS: BP 130/74
--- NOTE | 2022-05-31 06:27 | NUR ---
Problems reprioritized. Patient report given, questions answered & plan of care reviewed with oncoming nurse.
--- NOTE | 2022-05-31 06:28 | NUR ---
Patient in room PCU 3016. I have received report from [facility] and had the opportunity to ask questions and assume patient care.
[2022-05-31] MEDS: normal saline 1000ml 1,000 ML IV SCH (06:30)
[2022-05-31 07:00] LABS: BASOPHILS % (AUTO) 0.5 % (0-1); EOSINOPHILS # (AUTO) 0.1 X10'3 (0-0.9); EOSINOPHILS % (AUTO) 1.1 % (0-6); HEMATOCRIT 39.1 % (42.0-52.0); HEMOGLOBIN 13.5 g/dl (14.0-17.9); LYMPHOCYTES # (AUTO) 0.7 X10'3 (1.1-4.8); LYMPHOCYTES % (AUTO) 12.6 % (21-51); MEAN CORPUSCULAR HEMOGLOBIN 29.2 PG (27.0-31.0); MEAN CORPUSCULAR HGB CONC 34.6 g/dL (33.0-36.5); MEAN CORPUSCULAR VOLUME 84.4 FL (78-98); MEAN PLATELET VOLUME 8.3 FL (7.4-10.4); MONOCYTES # (AUTO) 0.8 X10'3 (0-0.9); MONOCYTES % (AUTO) 15.1 % (2-12); NEUTROPHILS # (AUTO) 3.7 X10'3 (1.8-7.7); NEUTROPHILS % (AUTO) 70.7 % (42-75); PLATELET COUNT 114 X10'3 (140-440); RED BLOOD COUNT 4.63 X10'6 (4.70-6.10); RED CELL DISTRIBUTION WIDTH 13.5 % (11.5-14.5); WHITE BLOOD COUNT 5.2 X10'3 (4.5-11.0)
[2022-05-31 07:37] LABS: ALANINE AMINOTRANSFERASE 28 U/L (12-78); ALBUMIN 3.5 G/DL (3.4-5.0); ALBUMIN/GLOBULIN RATIO 0.9 (1.1-1.5); ALKALINE PHOSPHATASE 47 IU/L (46-116); ANION GAP 7 (8-16); ASPARTATE AMINO TRANSFERASE 19 U/L (10-37); BILIRUBIN,TOTAL 0.7 MG/DL (0.1-1.0); BLOOD UREA NITROGEN 10 MG/DL (7-18); BUN/CREATININE RATIO 11.4 (5.4-32.0); CHLORIDE 104 MMOL/L (99-107); CREATININE 0.88 MG/DL (0.60-1.10); GLUCOSE 105 MG/DL (70-104); MAGNESIUM 2.1 MG/DL (1.5-2.4); POTASSIUM 3.9 MMOL/L (3.5-5.1); SODIUM 138 MMOL/L (135-145); TOTAL CARBON DIOXIDE 26.9 MMOL/L (24-32); TOTAL PROTEIN 7.2 G/DL (6.4-8.2); eGFR 88 ML/MIN
[2022-05-31] MEDS: budesonide 0.5mg/2ml UD nebule IH SCH (07:52)
[2022-05-31] MEDS ORDERED: aspirin 81mg, enteric-coated 1 TAB TABLET.DR PO SCH (08:00)
[2022-05-31] MEDS ORDERED: tamsulosin 0.4mg capsule PO SCH (08:00)
[2022-05-31] MEDS: APREMILAST 30 MG PO SCH (08:00)
[2022-05-31] MEDS ORDERED: aspirin 81mg tab.chew PO SCH (08:30)
[2022-05-31] MEDS: vancomycin/NS 1 GM ADD-VANTAGE 250 ML IV SCH (09:54)
--- NOTE | 2022-05-31 13:49 | NUR ---
Reviewed discharge instructions with pt. Pt verbalized understanding. Pt was able to dress himself, went for a walk around the unit and expressed a readiness to discharge home. All of pt's belongings were returned to pt and he was wheeled downstairs to be driven home by his family.
== END 2022-05-31 14:19 | disposition home or self-care (01) | DRG 183 ==
LOC: PAS IN 06:37 → PCU 3S 16:14
PROVIDERS: ADMIT Internal Medicine Cardiovascular Disease; ATTEND Internal Medicine Cardiovascular Disease
PROC: B41D1ZZ Fluoroscopy of Aorta and Bilateral Lower Extremity Arteries using Low Osmolar Contrast (ICD-10-PCS; 2022-05-30)
PROC: 02RF38Z Replacement of Aortic Valve with Zooplastic Tissue, Percutaneous Approach (ICD-10-PCS; principal; 2022-05-30 09:18)
DX: I35.0 Nonrheumatic aortic (valve) stenosis (principal); K74.60 Unspecified cirrhosis of liver; B19.20 Unspecified viral hepatitis C without hepatic coma; J44.9 Chronic obstructive pulmonary disease, unspecified; E78.5 Hyperlipidemia, unspecified; I10 Essential (primary) hypertension; Z87.891 Personal history of nicotine dependence; Z00.6 Encounter for examination for normal comparison and control in clinical research program
CPT/HCPCS: 33361; 36415; 71045; 71046; 76937; 80053; 81003; 82948; 83735; 83880; 85025; 85347; 85610; 85730; 86885; 86900; 86901; 86920; 87081; 93005; 93308; 94640; 94760; A4618; A6258; A6449; C1756; C1760; C1769; C1894; G0378; J0690; J1644; J2250; J2370; J2405; J2704; J2720; J3370; J3490; J7030; J7040; J7050; J7060; J7120; Q9967